=== PATIENT | male | born 1960 | race Caucasian/White ===

== ENCOUNTER → 2018-01-18 | Outpatient (CLI) | payer OTHER | LOC: BMCIMAGING 08:33 | PROVIDERS: ATTEND Physician Assistant | DX: S52.692D Other fracture of lower end of left ulna, subsequent encounter for closed fracture with routine healing (principal); S52.592D Other fractures of lower end of left radius, subsequent encounter for closed fracture with routine healing ==

== ENCOUNTER → 2018-02-16 | Outpatient (CLI) | payer OTHER | LOC: BMCIMAGING 09:43 | PROVIDERS: ATTEND Physician Assistant | DX: S52.392D Other fracture of shaft of radius, left arm, subsequent encounter for closed fracture with routine healing (principal); S52.292D Other fracture of shaft of left ulna, subsequent encounter for closed fracture with routine healing ==

== ENCOUNTER → 2018-03-09 | Outpatient (CLI) | payer OTHER | LOC: BMCIMAGING 10:51 | PROVIDERS: ATTEND Physician Assistant | DX: S52.392D Other fracture of shaft of radius, left arm, subsequent encounter for closed fracture with routine healing (principal); S52.292D Other fracture of shaft of left ulna, subsequent encounter for closed fracture with routine healing ==